=== PATIENT | female | born 1965 | race Caucasian/White ===

== ENCOUNTER → 2020-11-26 | Outpatient (CLI) | payer BC | LOC: RAD 16:55 | DX: M70.52 Other bursitis of knee, left knee (principal); M17.12 Unilateral primary osteoarthritis, left knee ==

== ENCOUNTER → 2020-12-02 | Outpatient (CLI) | payer BC | LOC: VAS 08:10 → RAD 08:45 | DX: M79.662 Pain in left lower leg (principal); R60.0 Localized edema ==